=== PATIENT | male | born 1995 | race Caucasian/White ===

== ENCOUNTER 2016-09-19 15:41 | Emergency (ER) | payer OTHER ==
[~2016-09-19] VITALS: Ht 167.6 cm; Wt 50.0 kg
[2016-09-19 15:48] VITALS: TEMP 99
[2016-09-19 16:23] LABS: BASO % 0.4 % (0.0-2.0); EOS % 0.1 % (0-4.0); GRAN # 4.7 (1.4-6.5); GRAN % 66.5 % (42.2-75.2); HEMATOCRIT 47.2 % (42.0-52.0); HEMOGLOBIN 17.6 g/dl (13.5-18.0); LYMPH # 1.3 (1.2-3.4); LYMPH % 19.1 % (20.0-51.0); MEAN CELL VOLUME 86 fl (80.0-100.0); MEAN CORPUSCULAR HEMOGLOBIN 32 pg (27.0-31.0); MEAN CORPUSCULAR HGB CONC 37 g/dl (33.0-37.0); MEAN PLATELET VOLUME 9.3 fl (7.4-10.4); MONO % 13.8 % (1.7-9.3); PLATELET COUNT 272 K/mm3 (130-400); RED BLOOD COUNT 5.52 M/mm3 (4.20-5.60)
[2016-09-19 16:32] LABS: PH 7 (5-8); SQUAMOUS EPITHELIAL None Seen /hpf; URINE APPEARANCE Cloudy; URINE BACTERIA None Seen /hpf; URINE BILIRUBIN Negative (NEGATIVE); URINE BLOOD 3+ (NEGATIVE); URINE COLOR Amber; URINE GLUCOSE Negative (NEGATIVE); URINE KETONE 1+ (NEGATIVE); URINE RBC >50 /hpf; URINE WBC None Seen /hpf
[2016-09-19 16:37] LABS: ADJUSTED CALCIUM 9.2 mg/dL (8.4-10.2); ALANINE AMINOTRANSFERASE 41 U/L (21-72); ALBUMIN 5.5 gm/dL (3.5-5.0); ALKALINE PHOSPHATASE 77 U/L (50-136); ANION GAP 20 mmol/L (7-16); BILIRUBIN,TOTAL 3.1 mg/dL (0.0-1.0); BLOOD UREA NITROGEN 15 mg/dL (9-20); CALCIUM 10.4 mg/dL (8.4-10.2); CARBON DIOXIDE 35 mmol/L (22-30); CREATININE, serum 0.76 mg/dL (0.66-1.25); GLUCOSE 98 mg/dL (74-106); LIPASE 77 U/L (23-300); MAGNESIUM 1.5 mg/dL (1.6-2.3); SODIUM 136 mmol/L (137-145); TOTAL PROTEIN 9.4 gm/dL (6.4-8.2)
[2016-09-19 16:47] LABS: C-REACTIVE PROTEIN < 0.5 mg/dL (0.0-0.9); CHLORIDE 81 mmol/L (98-107); POTASSIUM 2.8 mmol/L (3.4-5.0)
[2016-09-19] MEDS ORDERED: ZOFRAN 4MG T4 MG/TAB PO (17:14)
[2016-09-19] MEDS ORDERED: K-TAB20 PO (17:14)
[2016-09-19] MEDS ORDERED: PEPCID 20MG TAB20 MG PO (17:14)
[2016-09-19 17:48] VITALS: BP 133/71; PULSE 79
== END 2016-09-19 17:49 | disposition home or self-care (01) ==
LOC: COL.ER 15:41
PROVIDERS: Emergency Medicine
DX: F10.10 Alcohol abuse, uncomplicated (principal); R11.2 Nausea with vomiting, unspecified; E87.6 Hypokalemia; R31.9 Hematuria, unspecified; R79.89 Other specified abnormal findings of blood chemistry
CPT/HCPCS: J2060; J2405; J7030

== ENCOUNTER 2017-01-23 11:54 | Emergency (ER) | payer OTHER ==
[~2017-01-23] VITALS: Ht 167.6 cm; Wt 52.3 kg
[~2017-01-23 11:54] MED LIST: K-TAB20 PO; PEPCID 20MG TAB20 MG PO; ZOFRAN 4MG T4 MG/TAB PO
[2017-01-23 12:00] VITALS: BP 140/102; TEMP 97.6
[2017-01-23] MEDS ORDERED: DESYREL 50MG50 MG PO (12:04)
[2017-01-23 13:06] LABS: PH 7 (5-8); SQUAMOUS EPITHELIAL None Seen /hpf; URINE APPEARANCE Cloudy; URINE BACTERIA None Seen /hpf; URINE BILIRUBIN Negative (NEGATIVE); URINE BLOOD Negative (NEGATIVE); URINE COLOR Yellow; URINE GLUCOSE Negative (NEGATIVE); URINE KETONE Negative (NEGATIVE); URINE RBC 0-2 /hpf; URINE UROBILINOGEN Negative (NEGATIVE)
[2017-01-23 13:22] LABS: AMPHETAMINE URINE NEGATIVE; BARBITURATES URINE NEGATIVE; BENZODIAZEPINES URINE NEGATIVE; BUPRENORPHINE URINE NEGATIVE; METHADONE URINE NEGATIVE; OPIATES URINE NEGATIVE; OXYCODONE URINE NEGATIVE; PHENCYCLIDINE URINE NEGATIVE; PROPOXYPHENE URINE NEGATIVE; THC CANNABINOIDS URINE NEGATIVE
[2017-01-23 13:42] LABS: BASO # 0.1 (0.0-0.2); BASO % 2.2 % (0.0-2.0); EOS % 0.5 % (0-4.0); GRAN # 1.3 (1.4-6.5); GRAN % 30.8 % (42.2-75.2); HEMATOCRIT 46.9 % (42.0-52.0); HEMOGLOBIN 16.8 g/dl (13.5-18.0); LYMPH # 2.5 (1.2-3.4); LYMPH % 60.7 % (20.0-51.0); MEAN CELL VOLUME 91 fl (80.0-100.0); MEAN CORPUSCULAR HEMOGLOBIN 33 pg (27.0-31.0); MEAN CORPUSCULAR HGB CONC 36 g/dl (33.0-37.0); MEAN PLATELET VOLUME 9.2 fl (7.4-10.4); MONO # 0.2 (0.1-0.6); MONO % 5.6 % (1.7-9.3); PLATELET COUNT 267 K/mm3 (130-400); RED BLOOD COUNT 5.14 M/mm3 (4.20-5.60); REDCELL DISTRIBUTION WIDTH-CV 11.2 % (11.5-14.5); WHITE BLOOD COUNT 4.1 K/mm3 (4.8-10.8)
[2017-01-23 14:10] LABS: ADJUSTED CALCIUM 8.2 mg/dL (8.4-10.2); ALBUMIN 5.4 gm/dL (3.5-5.0); BILIRUBIN,TOTAL 0.9 mg/dL (0.0-1.0); CALCIUM 9.3 mg/dL (8.4-10.2); CREATININE, serum 0.65 mg/dL (0.66-1.25); POTASSIUM 3.7 mmol/L (3.4-5.0); TOTAL PROTEIN 9.3 gm/dL (6.4-8.2)
[2017-01-23 14:56] VITALS: PULSE 80
== END 2017-01-23 14:56 | disposition home or self-care (01) ==
LOC: COL.ER 11:54
PROVIDERS: Nurse Practitioner
DX: R74.8 Abnormal levels of other serum enzymes (principal); F10.10 Alcohol abuse, uncomplicated; F17.210 Nicotine dependence, cigarettes, uncomplicated
CPT/HCPCS: J2405; J7030